=== PATIENT | female | born 1985 | race Caucasian/White ===

== ENCOUNTER 2020-09-02 09:11 | Emergency (ER) | payer OTHER ==
[~2020-09-02] VITALS: Ht 170.2 cm; Wt 95.3 kg
[2020-09-02] MEDS ORDERED: ZYRTEC10 MG PO (10:20)
[2020-09-02] MEDS ORDERED: OMEPRAZOLE20 MG PO (10:20)
[2020-09-02] MEDS ORDERED: VENTOLIN HFA18 GM INH (14:40)
[2020-09-02] MEDS ORDERED: NORCO 5-325 TA1 EACH PO (16:39)
[2020-09-02] MEDS ORDERED: ZOFRAN4 MG PO (16:40)
== END 2020-09-02 17:10 | disposition home or self-care (01) ==
LOC: ED 09:11
DX: M25.462 Effusion, left knee (principal); R11.2 Nausea with vomiting, unspecified; R19.7 Diarrhea, unspecified; M25.572 Pain in left ankle and joints of left foot; Z20.828 Contact with and (suspected) exposure to other viral communicable diseases; M25.571 Pain in right ankle and joints of right foot
CPT/HCPCS: 20610; 80053; 81001; 83605; 83735; 84703; 85025; 85651; 99284-25; C9803; J1885; J2270; J7030; U0003

== ENCOUNTER 2023-01-26 16:16 | Emergency (ER) | payer OTHER ==
[~2023-01-26] VITALS: Ht 170.2 cm; Wt 95.2 kg
[~2023-01-26 16:16] MED LIST: NORCO 5-325 TA1 EACH PO; OMEPRAZOLE20 MG PO; VENTOLIN HFA18 GM INH; ZOFRAN4 MG PO; ZYRTEC10 MG PO
[2023-01-26] MEDS ORDERED: CYCLOBENZAPRINE10 MG PO (17:50)
[2023-01-26 18:15] VITALS: BP 156/80
== END 2023-01-26 18:15 | disposition home or self-care (01) ==
LOC: ED 16:16
DX: S76.012A Strain of muscle, fascia and tendon of left hip, initial encounter (principal); S39.012A Strain of muscle, fascia and tendon of lower back, initial encounter; M25.562 Pain in left knee; W01.0XXA Fall on same level from slipping, tripping and stumbling without subsequent striking against object, initial encounter; Z87.891 Personal history of nicotine dependence; Z79.899 Other long term (current) drug therapy
CPT/HCPCS: 72100; 73502; 73560; 84703